=== PATIENT | female | born 1970 | race Caucasian/White ===

== ENCOUNTER 2018-02-19 02:47 | Emergency (ER) | payer OTHER | END 2018-02-19 03:29 | disposition left against medical advice (07) | LOC: ED 02:47 | DX: Z53.21 Procedure and treatment not carried out due to patient leaving prior to being seen by health care provider (principal) ==

== ENCOUNTER 2018-10-06 12:32 | Emergency (ER) | payer OTHER ==
[~2018-10-06] VITALS: Ht 154.9 cm; Wt 77.1 kg
[2018-10-06 12:37] VITALS: BP 141/92; Ht 154.9 cm; Wt 77.1 kg
== END 2018-10-06 14:27 | disposition left against medical advice (07) ==
LOC: ED 12:32
DX: Z53.21 Procedure and treatment not carried out due to patient leaving prior to being seen by health care provider (principal)